=== PATIENT | female | born 1980 | race Caucasian/White ===

== ENCOUNTER 2020-07-22 14:07 | Emergency (ER) | payer SELFPAY ==
[2020-07-22] MEDS ORDERED: Cephalexin 250 MG CAP ONE (14:30)
[2020-07-22] MEDS ORDERED: Boostrix 0.5 ML (Tdap) VIAL ONE (14:30)
[2020-07-22] MEDS ORDERED: Bacitracin 1 PK ONE (14:30)
[2020-07-22] MEDS ORDERED: Lidocaine 1% w/Epinephrine 1:100K 20 ML VIAL ONE (14:30)
== END 2020-07-22 15:44 | disposition home or self-care (01) ==
LOC: BURERS 14:07
DX: S81.811A Laceration without foreign body, right lower leg, initial encounter (principal); F17.210 Nicotine dependence, cigarettes, uncomplicated; Z23 Encounter for immunization; W22.8XXA Striking against or struck by other objects, initial encounter
CPT/HCPCS: 12002; 90471; 90715

== ENCOUNTER 2020-08-05 13:51 | Emergency (ER) | payer SELFPAY | END 2020-08-05 14:36 | disposition home or self-care (01) | LOC: BURERS 13:51 | DX: T81.49XA Infection following a procedure, other surgical site, initial encounter (principal); S81.812D Laceration without foreign body, left lower leg, subsequent encounter; F17.210 Nicotine dependence, cigarettes, uncomplicated | CPT/HCPCS: 99282 ==